=== PATIENT | male | born 1980 | race Two or more races ===

== ENCOUNTER 2021-09-29 09:57 | Emergency (ER) | payer OTHER ==
[~2021-09-29] VITALS: Ht 172.7 cm; Wt 95.3 kg
[2021-09-29] MEDS ORDERED: NORFLEX100MG PO (14:02)
== END 2021-09-29 14:14 | disposition home or self-care (01) ==
LOC: ER 09:57
DX: R51.9 Headache, unspecified (principal)

== ENCOUNTER 2022-03-02 09:50 | Emergency (ER) | payer OTHER ==
[~2022-03-02] VITALS: Ht 172.7 cm; Wt 93.9 kg
[~2022-03-02 09:50] MED LIST: NORFLEX100MG PO
[2022-03-02] MEDS ORDERED: INDAPAMIDE1.25 MG PO (10:59)
[2022-03-02] MEDS ORDERED: DOXYCYCLINE MO100 M1 PO (10:59)
[2022-03-02] MEDS ORDERED: METRONIDAZOLE500 MG PO (14:49)
[2022-03-02] MEDS ORDERED: KETO10TA2 PO (14:49)
[2022-03-02] MEDS ORDERED: CIPRO500 MG PO (14:49)
== END 2022-03-02 15:08 | disposition home or self-care (01) ==
LOC: ER 09:50
DX: L05.91 Pilonidal cyst without abscess (principal)

== ENCOUNTER 2023-08-26 05:50 | Day surgery (SDC) | payer OTHER ==
[~2023-08-26 05:50] MED LIST changes: +CIPRO500 MG PO; +DOXYCYCLINE MO100 M1 PO; +INDAPAMIDE1.25 MG PO; +KETO10TA2 PO; +METRONIDAZOLE500 MG PO
[2023-08-26] MEDS ORDERED: PERCOCET 5-3251 EACH PO (08:41)
[2023-08-26] MEDS ORDERED: BACTRIM DS TAB1 EACH PO (08:42)
== END 2023-08-26 15:00 | disposition home or self-care (01) ==
LOC: CIR.AMB 05:50
PROVIDERS: ATTEND Surgery
DX: L05.01 Pilonidal cyst with abscess (principal); I10 Essential (primary) hypertension; Z20.822 Contact with and (suspected) exposure to COVID-19